=== PATIENT | male | born 1940 | race Caucasian/White ===

== ENCOUNTER 2019-06-23 08:24 | Emergency (ER) | payer MEDICARE, OTHER ==
[~2019-06-23] VITALS: Ht 172.7 cm; Wt 81.7 kg
[2019-06-23] MEDS ORDERED: SERT25 PO (10:10)
[2019-06-23 11:05] LABS: BASOPHILS ABSOLUTE AUTO 0.06 K/mm3 (0.00-0.23); BASOPHILS PERCENT AUTO 1 % (0-2); EOSINOPHILS ABSOLUTE AUTO 0.01 K/mm3 (0.00-0.68); EOSINOPHILS PERCENT AUTO 0 % (0-6); Hematocrit 49.2 % (37.0-53.0); Hemoglobin 16.3 g/dL (13.5-17.5); IMMATURE GRAN ABSOLUTE AUTO 0.05 K/mm3 (0.00-0.10); IMMATURE GRAN PERCENT AUTO 1 % (0-1); LYMPHOCYTES ABSOLUTE AUTO 1.16 K/mm3 (0.84-5.20); LYMPHOCYTES PERCENT AUTO 11 % (21-46); MONOCYTES ABSOLUTE AUTO 1.02 K/mm3 (0.16-1.47); MONOCYTES PERCENT AUTO 9 % (4-13); Mean Corpuscular HGB 31.6 pg (26.0-34.0); Mean Corpuscular HGB Conc 33.1 g/dL (31.5-36.5); Mean Corpuscular Volume 95 fL (80-100); Mean Platelet Volume 9.1 fL (9.1-12.4); NEUTROPHILS ABSOLUTE AUTO 8.65 K/mm3 (1.96-9.15); NEUTROPHILS PERCENT AUTO 79 % (41-73); Platelet Count 248 K/mm3 (150-400); RDW Coefficient Variation 13.2 % (11.7-14.2); RDW Standard Deviation 47.5 fL (35.1-46.3); Red Blood Cell Count 5.16 M/mm3 (4.30-5.90); White Blood Cell Count 10.95 K/mm3 (4.00-11.30)
[2019-06-23 11:31] LABS: Alanine Aminotransfer (ALT/SGP 27 U/L (12-78); Albumin/Globulin Ratio 1.1 (0.8-1.8); Alk Phos 78 U/L (50-136); Anion Gap 6 mmol/L (6-16); Aspartate Aminotrans (AST/SGOT 25 U/L (12-37); Bilirubin, Total 0.8 mg/dL (0.1-1.0); Blood Urea Nitrogen 22 mg/dL (8-24); Bun/Creatinine Ratio 18.5 (12.0-20.0); CO2, Blood 26 mmol/L (21-32); Calcium, Blood 8.9 mg/dL (8.5-10.1); Chloride, Blood 107 mmol/L (98-108); Creatinine, Blood 1.19 mg/dL (0.60-1.20); Globulin, Blood 3.5 g/dL (2.2-4.0); Glomerular Filtration Rate >60 (60-); Glucose, Blood 124 mg/dL (70-99); Sodium, Blood 139 mmol/L (136-145); Total Protein, Blood 7.5 g/dL (6.4-8.2)
== END 2019-06-23 12:19 | disposition home or self-care (01) ==
LOC: ER 08:24
PROVIDERS: Physician Assistant
DX: F41.1 Generalized anxiety disorder (principal)
CPT/HCPCS: 36415; 80053; 85025; 93005; 93010; 99283-25

== ENCOUNTER 2020-12-19 02:46 | Emergency (ER) | payer OTHER ==
[~2020-12-19] VITALS: Ht 165.1 cm; Wt 79.4 kg
[~2020-12-19 02:46] MED LIST: ACET500; CANDESARTAN CIL16 MG PO; Eucerin Creme454 GM TOP; HYDCHL12.5 PO; LIDO700A20 TOP; SERT25 PO; SERT50 PO; SPIR25 PO
== END 2020-12-19 04:29 | disposition home or self-care (01) ==
LOC: ER 02:46
DX: S01.01XA Laceration without foreign body of scalp, initial encounter (principal); Z87.891 Personal history of nicotine dependence; W22.03XA Walked into furniture, initial encounter
CPT/HCPCS: 12002; 99283

== ENCOUNTER 2021-02-04 03:12 | Emergency (ER) | payer MEDICARE, OTHER ==
[~2021-02-04] VITALS: Ht 172.7 cm; Wt 79.4 kg
== END 2021-02-04 06:34 | disposition home or self-care (01) ==
LOC: ER 03:12
DX: S01.111A Laceration without foreign body of right eyelid and periocular area, initial encounter (principal); Z88.8 Allergy status to other drugs, medicaments and biological substances; Z87.891 Personal history of nicotine dependence; W06.XXXA Fall from bed, initial encounter
CPT/HCPCS: 70450; 93005; 93010; 99284-25

== ENCOUNTER 2021-04-14 16:19 | Emergency (ER) | payer MEDICARE, OTHER ==
[~2021-04-14] VITALS: Ht 177.8 cm; Wt 74.8 kg
[2021-04-14] MEDS ORDERED: BISA10S PR (17:00)
[2021-04-14] MEDS ORDERED: ACET500 PO (17:00)
[2021-04-14] MEDS ORDERED: BUSP10 PO (17:01)
[2021-04-14] MEDS ORDERED: THERA-D2000 UNIT PO (17:01)
[2021-04-14] MEDS ORDERED: HYDCHL12.5 PO (17:03)
[2021-04-14] MEDS ORDERED: LOSA25 PO (17:04)
[2021-04-14] MEDS ORDERED: DULCOLAX400 MG/5 M PO (17:05)
[2021-04-14] MEDS ORDERED: SERT50 PO (17:09)
== END 2021-04-14 18:27 | disposition home or self-care (01) ==
LOC: EDBD 16:19 → ER 16:19
DX: S09.90XA Unspecified injury of head, initial encounter (principal); S80.211A Abrasion, right knee, initial encounter; W18.30XA Fall on same level, unspecified, initial encounter
CPT/HCPCS: 70450; 99284-25